=== PATIENT | female | born 2005 | race Caucasian/White ===

== ENCOUNTER 2024-04-18 03:31 | Emergency (ER) | payer SELFPAY ==
[2024-04-18 03:33] VITALS: BP 108/76; PULSE 54; RESP 16; TEMP 36.8; O2SAT 100; BMI 20.5
--- NOTE | 2024-04-18 04:04 | EX.ED.DYSGE1 ---
HPI History of Present Illness Chief Complaint: Ear Problem Detail of Chief Complaint: Ear pain that started yesterday evening Informant: patient Onset/Context/Timing Onset: Yesterday Context: Sudden Onset Timing: Continuous Quality: Pain Location: Left ear Current Severity: Mild Maximum Severity: Moderate Worsened by: Nothing Relieved by: Nothing Associated Symptoms Associated Symptoms: Decreased hearing on the left Narrative Narrative: Patient is a 18-year-old with history of brain tumor that was resected. She is on anticonvulsant meds. She is unable to take quinolones. She presents because of left ear pain with decreased hearing. She presently denies fever, chills or night sweats. She denies nasal symptoms. She denies sore throat. She denies cough. She had a upper respiratory infection approximately 1 to 2 weeks ago. She has no GI symptoms. She denies rash. Prior similar symptoms: No Recent Illness/Hospitalization: No PFSH PFS Medical History Epilepsy Brain tumor Home Medications ?Medication ?Instructions ?Recorded ?Last Taken ?Type azithromycin 250 mg tablet See Rx Instructions PO .COMPLEX #6 04/18/24 Unknown Rx tabs levetiracetam 1,000 mg tablet 1,000 mg PO QHS 04/18/24 Unknown History (Keppra) levetiracetam 500 mg tablet 500 mg PO .QAM 04/18/24 Unknown History (Keppra) Allergy/AdvReac Type Severity Reaction Status Date / Time droperidol Allergy Severe SOB Verified 04/18/24 03:40 ciprofloxacin (From Cipro) AdvReac Intermediate N/V Verified 04/18/24 03:40 Social History Smoking Status: Never smoker ROS ROS ED Constitutional Constitutional ED: Denies chills, fever(s), subjective or sweats Eyes Eyes: Denies blurry vision or change in vision ENT ENT ED: Reports ear pain left; Denies rhinorrhea or sore throat Cardiovascular Cardiovascular: Denies chest pain, palpitations or racing heartbeat Respiratory/Chest Respiratory/Chest: Denies cough, dyspnea or dyspnea on exertion Integumentary Denies rash Neurologic Neurologic: Denies headache(s) Allergic/Immunologic Allergic/Immunologic ED: Denies mouth swelling or tongue swelling EXAM Physical Exam Const Vital Signs: 04/18/24 03:33 Temperature 98.2 F Temperature Source Oral Pulse Rate 54 L Respiratory Rate 16 Blood Pressure 108/76 Blood Pressure Mean 86 Pulse Ox 100 Oxygen Delivery Method Room Air Positive well nourished and well developed General Appearance ED: well developed and NAD; Negative for cyanotic, diaphoretic or pallor HEENT Reports moist mucous membranes; Denies TM's clear HEENT Narrative: Posterior pharynx is normal. Right ear is normal. Left ear reveals bullous myringitis. The external auditory canals normal. The auricle is normal. Tympanic Membrane ED: Negative for TM's clear Eyes PERRL and EOMs intact bilaterally General Eye ED: Negative for pale conjunctiva or scleral icterus Resp normal respiratory effort Cardio regular rate and regular rhythm Neuro oriented x3 and CN's II-XII intact bilaterally Sensorium / Orientation: alert Psych mental status grossly normal Skin no rashes or lesions noted, no wounds and skin turgor normal General Skin Exam: Negative for jaundice or pallor MDM MDM MDM Narrative Medical decision making narrative: Patient has evidence of bullous myringitis left ear. This probably is related to viral infection. There is a 4 to 8% incidence of mycoplasma as the etiology/cause. Therefore will treat with azithromycin. Prescription was filled here in the pharmacy. Patient was told to take the first 2 tablets prior to leaving. There is no other concerns. Laboratory testing and imaging is not indicated. Discharge Plan Triage Chief Complaint: Ear Problem ED Provider: Alexis Serrano Dx/Rx/DC Orders Clinical Impression: Bullous myringitis of left ear, Recent upper respiratory tract infection, Decreased hearing of left ear Instructions: ED Otitis Media Adult Prescriptions: New azithromycin 250 mg tablet See Rx Instructions .ROUTE .COMPLEX Qty: 6 0RF Rx Instructions: For 250 mg dose pack: take 500 mg today (day 1), then 250 mg for 4 days (days 2-5) No Action levetiracetam [Keppra] 1,000 mg tablet 1,000 mg PO QHS levetiracetam [Keppra] 500 mg tablet 500 mg PO .QAM Activity Restrictions/Additional Instructions: 1. Follow-up with your doctor if no improvement in 3 days 2. Take antibiotics until gone Print Language: Vietnamese Disposition Disposition: Home, Self Care
[2024-04-18 04:21] VITALS: BP 108/77; PULSE 51; RESP 16; TEMP 36.6; O2SAT 97
== END 2024-04-18 04:23 | disposition home or self-care (01) ==
PROVIDERS: Emergency Provider Emergency Medicine; Visit Provider Emergency Medicine
DX: H73.012 Bullous myringitis, left ear (principal); G40.909 Epilepsy, unspecified, not intractable, without status epilepticus; J06.9 Acute upper respiratory infection, unspecified; H91.92 Unspecified hearing loss, left ear
CPT/HCPCS: 99282